=== PATIENT | male | born 1980 | race Caucasian/White ===

== ENCOUNTER 2025-04-29 12:28 | Emergency (ER) | payer SELFPAY ==
--- NOTE | 2025-04-29 12:35 | XRR_ITS ---
PROCEDURE INFORMATION: Exam: XR Left Hip Exam date and time: 04/29/2025 12:49 PM Age: 44 years old Clinical indication: Hip pain; Left hip TECHNIQUE: Imaging protocol: Radiologic exam of the left hip. Views: 2 or 3 views hip with pelvis when performed. COMPARISON: No relevant prior studies available. FINDINGS: Bones/joints: Negative for acute fractures. Negative for joint dislocation. There is severe chronic flattening changes of the femoral head with diffuse remodeling of the head. Severe to complete joint space loss. Subcortical cystic changes of the superior acetabulum. Subcortical cystic changes of the femoral head. Soft tissues: Unremarkable. XR/XR hip LT 2-3V wo/w pel* [id number] IMPRESSION: 1. End-stage degenerative changes. 2. Negative for acute pathology.
[2025-04-29 12:41] VITALS: BP 145/94; PULSE 87; RESP 16; TEMP 36.7; O2SAT 96
--- NOTE | 2025-04-29 12:46 | W.ED.EXTPRO ---
HPI - Extremity Problem General: Chief complaint: Extremity Injury, Lower Stated complaint: L hip pain Time Seen by Provider: 04/29/25 12:46 Source: patient and family Mode of arrival: wheelchair Limitations: no limitations History of Present Illness: Patient is a 44-year-old male who presents to ED today along with significant other for acute on chronic left hip pain. Patient states at the age of 15 he was diagnosed with Legg-Calve Perthes disease and was told eventually he would need a total hip replacement. Patient was told that he needed to make it to 35 until orthopedics would perform this procedure. He states he has been holding out in pain but yesterday/today the pain has worsened. He states he chronically has difficulty with ambulation secondary to the pain. Denies numbness, tingling, loss of sensation. Reports chronic decrease ROM of left hip joint. Complaint: joint pain Onset (ago): year(s) Pain Consistency: constant Location: left and lower extremity (hip) Radiation: none Relieving factors: nothing Exacerbating factors: range of motion, weight bearing and walking Associated symptoms: Reports no associated symptoms; Deny chest pain or fever(s) Related Data Previous Rx's ?Medication ?Instructions ?Recorded hydrocodone 5 mg-acetaminophen 325 1 tab PO Q6H PRN pain #14 tabs 04/29/25 mg tablet Allergies Allergy/AdvReac Type Severity Reaction Status Date / Time No Known Allergies Allergy Verified 04/29/25 12:44 Review of Systems Const: Denies: fever(s), chills, body aches, fatigue or malaise Card: Denies: chest pain Resp: Denies: dyspnea GI: Denies: abdominal pain Musc: Reports: joint pain (L hip) and limited range of motion (L hip); Denies: neck pain, back pain, extremity pain, extremity swelling, joint swelling, joint redness or joint warmth Neuro: Reports: difficulty walking (secondary to L hip pain); Denies: numbness in extremities, weakness in extremities or sensory changes Physical Exam Const: COMMON NORMALS: average body habitus, patient oriented x3, no limitations, healthy appearing, alert and well nourished GENERAL APPEARANCE: cooperative and in distress (uncomfortable secondary to pain) Resp: COMMON NORMALS: normal respiratory effort and clear to auscultation bilaterally AUSCULTATION: clear to auscultation bilaterally Cardio: COMMON NORMALS: regular rate and regular rhythm RATE: regular rate RHYTHM: regular rhythm Back/Pelvis: COMMON NORMALS: thoracic and lumbar spine normal to inspection and no thoracic nor lumbar tenderness Extremity: COMMON NORMALS: capillary refill normal, no clubbing, cyanosis or edema, no calf tenderness and no pedal edema GENERAL: Yes normal exam except as noted LEFT LOWER EXTREMITY: Yes hip joint (significant pain throughout L hip joint with attempted ROM) Left hip: Yes ROM (limited-states this is chronic) and Yes neurovascular exam (normal) Neuro: COMMON NORMALS: patient oriented x3, moves all extremities, no focal motor deficits and no sensory deficits noted SENSORIUM/ORIENTATION: Yes alert GAIT: Yes Unable to assess gait Skin: COMMON NORMALS: no rashes or lesions noted GENERAL SKIN EXAM: no rashes or lesions noted Course Vital Signs: Vital signs: Vital Signs Temperature 98.0 F 04/29/25 12:41 Pulse Rate 87 04/29/25 12:41 Respiratory Rate 18 04/29/25 13:17 Blood Pressure 145/94 04/29/25 12:41 Pulse Oximetry 96 04/29/25 12:41 Oxygen Delivery Me thod Room Air 04/29/25 12:41 MDM - Extremity (Nontraumatic) Medical Decision Making Patient with known Legg-Calve Perthes disease. Findings on L hip XR consistent with this. Will treat pain and refer to orthopedics for definitive management. Medical Records I reviewed the patient's medical records. 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 [[id number]], left leg Condition: Stable Prescriptions: New hydrocodone-acetaminophen 5-325 mg tablet 1 tab PO Q6H PRN (Reason: pain) Qty: 14 0RF Discharge Orders: Discharge ED (Routine); Ordered 04/29/25 Ordered By: Elda Williamson Patient Instructions: Opioid Safety, Pain Management, Patient Portal & Francesco Instructions Activity Restrictions/Additional Instructions: As we discussed, case management should reach out to you this week to help set you up with your follow-up orthopedic appointment for further evaluation of your chronic left hip pain and findings on your hip x-ray today. You may take the pain medication as needed for significant discomfort. You may alternate this with ibuprofen. You may return to the emergency department at anytime for any further concerns you may have. Print Language: Citizen Of [place] Coding Level of Care Code ED Reading Professor for Jeanette Whitt
[2025-04-29 13:17] VITALS: RESP 18
[2025-04-29] MEDS: morphine 4 mg/mL SDV 1 mL IM (13:17)
[2025-04-29] MEDS: orphenadrine 30 mg/mL Inj 2 mL 60 MG IM (13:21)
[2025-04-29 14:00] VITALS: BP 103/69; PULSE 64; O2SAT 96
--- NOTE | 2025-04-30 12:42 | PC.NURSE ---
Ortho referral in.
== END 2025-04-29 14:00 | disposition home or self-care (01) ==
PROVIDERS: Emergency Provider Physician Assistant
DX: M91.12 Juvenile osteochondrosis of head of femur [Legg-Calve-Perthes], left leg (principal)
CPT/HCPCS: 73502; 96372; 99284; J1885; J2270; J2360